=== PATIENT | male | born 1960 | race Caucasian/White ===

== ENCOUNTER 2018-06-28 19:00 | Emergency (ER) | payer OTHER | END 2018-06-28 20:00 | disposition home or self-care (01) | LOC: ER 19:00 | DX: K11.21 Acute sialoadenitis (principal); F17.200 Nicotine dependence, unspecified, uncomplicated ==

== ENCOUNTER → 2018-06-30 | Outpatient (CLI) | payer OTHER | LOC: YCFC.O 15:44 | PROVIDERS: ATTEND Family Medicine | DX: K11.9 Disease of salivary gland, unspecified (principal) ==

== ENCOUNTER 2018-11-09 16:54 | Inpatient (IN) | payer OTHER ==
[2018-11-09] MEDS ORDERED: IPRATROPIUM/ALBUTEROL 3 ML VIAL NEB ONE (17:19)
[2018-11-09] MEDS ORDERED: methylPREDNISolone SODIUM SUC 125 MG/2 ML VIAL IV ONE (17:19)
--- NOTE | 2018-11-09 17:22 | ED.PDOC ---
History of Present Illness - General Chief Complaint: Respiratory Problem Time Seen by Provider: 11/09/18 17:16 Source: patient Exam Limitations: no limitations - History of Present Illness Comments: PT C/O COUGH AND SOB. HAS BEEN SICK FOR PAST WEEK WITH MULTIPLE SICK FAMILY MEMBERS. HAS GOTTEN PROGRESSIVELY WORSE OVER PAST 3 DAYS. NOW WITH VERY INTENSE SPASMOTIC COUGH AND SOB. NON PRODUCTIVE. Cough Quality/Degree: moderate Improving Factors: nothing Worsening Factors: nothing Allergies/Adverse Reactions: Allergies Bupropion [From Wellbutrin] Allergy (Verified 11/09/18 17:01) Review of Systems - Review of Systems Constitutional: Denies: chills, fever EENTM: States: no symptoms reported Respiratory: States: cough, short of breath - GONSALEZ, NO PND ORTHOPNEA Cardiology: Denies: chest pain, palpitations, syncope Gastrointestinal/Abdominal: Denies: abdominal pain, nausea, vomiting Genitourinary: States: no symptoms reported Musculoskeletal: States: no symptoms reported Skin: States: no symptoms reported Neurological: States: no symptoms reported Endocrine: States: no symptoms reported Hematologic/Lymphatic: States: no symptoms reported Past Medical History (General) - Patient Medical History Hx Stroke: No Hx Asthma: No Hx of COPD: No Hx Cardiac Disorders: No Hx Diabetes: No Surgical History: other Family Medical History - Family History Mother Family History: No Known Physical Exam - Physical Exam General Appearance: Alert, Other - MILD RESP DISTRESS. Eye Exam: bilateral normal ENT Exam: normal ENT inspection, hearing grossly normal Neck: non-tender, full range of motion, supple Respiratory: other - BS SLIGHTLY DIMINISHED PAUL MORE IN L BASE, NO RALES/RHONCHI/WHEEZES. Cardiovascular/Chest: no murmur, tachycardia Gastrointestinal/Abdominal: non tender, soft, no organomegaly Extremity: normal range of motion, non-tender, normal inspection Neurologic: alert, normal mood/affect Skin Exam: normal color, warm/dry Lymphatic: no adenopathy Progress - Progress Progress: 11/09/18 17:51 PAUL LL PNEUMONIA, R>L. 11/09/18 18:41 LOOKS BETTER, LACTIC ACID NL, D/W MICHAEL MARSH WILL ADMIT. - EKG/XRAY/CT EKG: Sinus, Tachy - RATE 121, NL AXIS, NL INTERVALS, , nonspecific ST T wave Chg - NAIP, NO OLD FOR COMPARISON Departure - Departure Clinical Impression: Pneumonia Qualifiers: Pneumonia type: due to unspecified organism Laterality: bilateral Lung location: lower lobe of lung Qualified Code(s): J18.1 - Lobar pneumonia, unspecified organism COPD (chronic obstructive pulmonary disease) Qualifiers: COPD type: unspecified COPD Qualified Code(s): J44.9 - Chronic obstructive pulmonary disease, unspecified Time of Disposition: 18:43 Disposition: Admit Patient Condition: Fair Departure Forms: ED Discharge - Pt. Copy, Patient Portal Self Enrollment Referrals: Lauro Sanches MD [Primary Care Provider] - 1-2 Weeks Decision To Admit - Decistion To Admit Decision to Admit Reason: Admit from ER Decision to Admit Date: 11/09/18 Decision to Admit Time: 18:05
--- NOTE | 2018-11-09 17:40 | RAD ---
EXAM DESCRIPTION: Chest,1 View CLINICAL HISTORY: COUGH, SOB COMPARISON: 11 Apr 2010 TECHNIQUE: AP portable chest FINDINGS: Chronic basilar interstitial lung disease is observed. There has been an interval worsening in the right lung base. There may be a superimposed acute infiltrate present. The heart is within range of normal. The chest is mildly hyperexpanded. No pleural fluid is seen. IMPRESSION: A background of chronic basilar interstitial lung disease is observed with new infiltrate at the right lung base suggesting a superimposed pneumonia. Electronically signed by: Natanael Meyers MD 11/09/2018 5:39 PM [facility]
[2018-11-09] MEDS ORDERED: cefTRIAXone SODIUM 1 GM in SODIUM CHL 0.9% 50ML MIN-BAG+ 50 ML IVPB ONE (17:44)
[2018-11-09] MEDS ORDERED: AZITHROMYCIN IV 500 MG in SODIUM CHLORIDE 0.9% 250ML 250 ML IVPB ONE (17:44)
[2018-11-09] MEDS ORDERED: cefTRIAXone SODIUM 1 GM VIAL ONE (17:52)
[2018-11-09] MEDS ORDERED: SODIUM CHL 0.9% 50ML MIN-BAG+ 50 ML IVPB ONE (17:53)
[2018-11-09] MEDS ORDERED: AZITHROMYCIN IV 500 MG VIAL IVPB ONE (18:21)
[2018-11-09] MEDS ORDERED: SODIUM CHLORIDE 0.9% 250ML 250 ML ONE (18:21)
[2018-11-09] MEDS ORDERED: SODIUM CHLORIDE 0.9% 1000ML 1,000 ML IVS ONE (18:41)
--- NOTE | 2018-11-09 19:23 | HP ---
SUPERVISING PHYSICIAN: Zachary Leslie M.D. CHIEF COMPLAINT: Shortness of breath. HISTORY OF PRESENT ILLNESS: This is a 58 year-old male who developed some shortness of breath starting on Friday. Over the weekend it has progressively gotten worse. He has begun to have a productive cough. At first the cough production generated clear sputum, however it has turned yellow. He states he does not really know if he has run a fever or not, but he has had hot and cold episodes so he came to the Emergency Room with the complaints. Initially his O2 saturations were in the 70s. He was given a nebulizer as well as Solu-Medrol and placed on supplemental oxygen. He did have improvement in his O2 saturations. In fact, he was placed on a Venti mask. Chest x-ray was consistent with a right lower lobe pneumonia via interpretation but it does look like he has probably got a retrocardiac infiltrate on the left side as well. White count was 24,000 with 19% bands. Chemistry is pretty much unremarkable. Lactate was normal at 1.2. PAST MEDICAL HISTORY: The patient denies any past medical history. PAST SURGICAL HISTORY: 1. Distant history of hernia repair as a child. CURRENT MEDICATIONS: No active medications at this time. He does have nicotine dependency. ALLERGIES: WELLBUTRIN. FAMILY HISTORY: Father of a myocardial infarction. Mother who is healthy. Brother who of lung cancer. SOCIAL HISTORY: The patient smokes 1 pack per day and has done so for about the last 43 years or so. Social alcohol consumption. No illegal drugs. 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 REVIEW OF SYSTEMS: CONSTITUTIONAL: Possible fever. Positive for chills. No malaise. No recent weight loss or weight gain. HEENT: No headaches, vision changes, ear pain, nasal congestion or throat pain. RESPIRATORY: Positive for cough. No hemoptysis. No pleuritic chest pain. Positive for dyspnea. Positive for productive cough. CARDIOVASCULAR: No chest pain, palpitations or peripheral edema. GASTROINTESTINAL: No nausea, vomiting, diarrhea, constipation or abdominal pain. GENITOURINARY: No dysuria, frequency or flank pain. HEMATOLOGIC: No easy bruising or transfusion reaction. MUSCULOSKELETAL: No joint pain, joint swelling or muscle cramps. NEUROLOGIC: No syncope, paresthesias or seizures. ENDOCRINE: No polydipsia, polyuria or polyphagia. No heat or cold intolerance. PHYSICAL EXAMINATION: VITAL SIGNS: Blood pressure 115/78, heart rate about 115, respiratory rate 24, temperature 98.5, oxygen saturation currently 94% on 50% Venturi mask. GENERAL: Mr. Cedeno is a 58 year-old male patient who is in mild respiratory distress currently. HEENT: Head is normocephalic and atraumatic. Eyes: Pupils are equal and reactive. Nose: No drainage. Throat: Moist mucosa. NECK: Supple. Midline trachea. No jugular venous distention. CHEST: Symmetrical with equal rise and fall of the chest with inspiration and expiration. Lung sounds are diffusely diminished with bibasilar rales. In the upper lobes you can hear some faint wheezes. CARDIOVASCULAR: Regular rate and rhythm. Sinus tachycardia per the personnel monitor. ABDOMEN: Soft, flat. Positive bowel sounds. No tenderness to palpation. GENITOURINARY: Exam is deferred. EXTREMITIES: Lower extremities with no significant edema. 2+ pulses. Capillary refill less than 2 seconds. NEUROLOGIC: The patient is alert and oriented. Moves all extremities. Extraocular movements are intact.l LABORATORY: Labs and films are as discussed in History of Present Illness. ASSESSMENT: 1. Bibasilar pneumonia. 2. Sepsis secondary to #1. 3. Chronic obstructive pulmonary disease exacerbation. 4. Hypoxemic respiratory failure secondary to #1 and #3. 5. Continuous nicotine dependency. PLAN: At this time I will place the patient on community acquired pneumonia antibiotics. The blood cultures and sputum cultures have already been sent. Additionally he has gotten a liter of IV fluids in the Emergency Room. Will place him on continuous IV fluids as well. Will schedule nebulizer therapy as well as IV corticosteroids. I will probably put him on a nicotine patch due to his continuous nicotine dependency. I will order DVT and GI ulcer prophylaxis as well as well. Will monitor cultures and adjust antibiotics accordingly. [facility][id number] [facility]
[2018-11-09] MEDS ORDERED: ALBUTEROL SULFATE 2.5 MG/3 ML VIAL NEB PRN (19:40)
[2018-11-09] MEDS: IPRATROPIUM/ALBUTEROL 3 ML VIAL INH SCH (20:47)
[2018-11-09] MEDS: LACTATED RINGERS 1,000 ML IVS PRN (21:22)
[2018-11-09] MEDS: levoFLOXacin 750MG IV 750 MG in PREMIX BAG 1 BAG IVPB SCH (21:26)
[2018-11-09] MEDS: IV SET AND CAP CHANGE INJ INJ SCH (21:27)
[2018-11-09] MEDS: ENOXAPARIN SODIUM 40 MG/0.4 ML SYG SUBCU SCH (21:27)
[2018-11-09] MEDS: methylPREDNISolone SODIUM SUC 40 MG/ML VIAL IV SCH (21:42)
[2018-11-10] MEDS: IPRATROPIUM/ALBUTEROL 3 ML VIAL INH SCH ×6 (00:20→20:23)
[2018-11-10] MEDS: methylPREDNISolone SODIUM SUC 40 MG/ML VIAL IV SCH ×3 (06:05→22:27)
[2018-11-10] MEDS: OMEPRAZOLE CAP 20 MG CAP PO SCH (06:06)
--- NOTE | 2018-11-10 07:07 | RAD ---
EXAM: Single view chest. INDICATION: Pneumonia. COMPARISON: Chest x-ray: 11/09/18. FINDINGS: The lungs are emphysematous with grossly stable bibasilar airspace opacities, right greater than left. The heart size is stable. There is no pneumothorax or pleural effusion. The bones are unchanged. IMPRESSION: No significant change compared to the prior exam. Emphysematous lungs with grossly stable bibasilar airspace opacities, right greater than left, concerning for pneumonia Electronically signed by: Bentley Bender MD 11/10/2018 7:06 AM [facility] Workstation: [id number]
[2018-11-10] MEDS: LACTATED RINGERS 1,000 ML IVS PRN ×2 (09:31→20:11)
--- NOTE | 2018-11-10 14:23 | PN ---
DATE: SUPERVISING PHYSICIAN: Zachary Leslie M.D. SUBJECTIVE: The patient states he feels much better than he did yesterday. Shortness of breath has improved, however he does desaturate when he coughs. OBJECTIVE: Blood pressure is 111/71, heart rate 94, respiratory rate 20, temperature 98.0, oxygen saturation 95%. GENERAL: Mr. Cedeno is a 58 year-old male patient in no active distress currently. NEUROLOGIC: The patient is alert and oriented. LUNGS: Severely diminished. CARDIOVASCULAR: Regular rate and rhythm. Normal S1 and S2. ABDOMEN: Soft. Positive bowel sounds. EXTREMITIES: Lower extremities with no edema, 2+ pulses. LABORATORY: White count 15.7 which is an improvement over 24.3, hemoglobin 14.3, hematocrit 42.8, platelet count 150. Chemistry shows sodium 139, potassium 4.2, chloride 107, CO2 is 25, BUN 16, creatinine 0.94, glucose 159, calcium 8.9. Chest x-ray shows no significant change from yesterday. ASSESSMENT: 1. Bibasilar pneumonia. 2. Sepsis secondary to #1. 3. Chronic obstructive pulmonary disease exacerbation. 4. Hypoxemia secondary to #1 and #3. 5. Continuous nicotine dependency. PLAN: The patient is stepwise improving, therefore will continue current therapy. I plan on reducing his steroids starting tomorrow. He can possibly go to p.o. due to his dramatic improvement. Recheck labs tomorrow as well. #[id number] [facility]
[2018-11-10] MEDS: levoFLOXacin 750MG IV 750 MG in PREMIX BAG 1 BAG IVPB SCH (20:04)
[2018-11-10] MEDS: ENOXAPARIN SODIUM 40 MG/0.4 ML SYG SUBCU SCH (20:04)
[2018-11-10] MEDS: SODIUM CHLORIDE 0.9% (FLUSH) 10 ML SYG IV PRN ×2 (20:14→22:27)
[2018-11-11] MEDS: IPRATROPIUM/ALBUTEROL 3 ML VIAL INH SCH ×6 (00:14→20:38)
[2018-11-11] MEDS: OMEPRAZOLE CAP 20 MG CAP PO SCH (06:05)
[2018-11-11] MEDS: SODIUM CHLORIDE 0.9% (FLUSH) 10 ML SYG IV PRN (06:05)
[2018-11-11] MEDS: methylPREDNISolone SODIUM SUC 40 MG/ML VIAL IV SCH ×3 (06:06→20:39)
--- NOTE | 2018-11-11 07:03 | RAD ---
Procedure: XR CHEST 1 VIEW Exam Date: 11/11/2018 Ordering Provider: Gerardo Calles Clinical Indication: pneumonia Comparison: 11/10/2018 Findings: Cardiomediastinal silhouette is stable. Emphysema. Bibasilar infiltrates, right greater than left, are not significantly changed from prior. No pleural effusion. No pneumothorax. No acute osseous abnormality. Impression: 1. Bibasilar infiltrates are not significantly changed from prior. Electronically signed by: Kurt Briggs MD 11/11/2018 7:01 AM [facility]
[2018-11-11] MEDS ORDERED: SODIUM CHLORIDE 0.9% (FLUSH) 10 ML SYG IV ONE (13:51)
[2018-11-11] MEDS ORDERED: ACETAMINOPHEN 325 MG TAB PO PRN (14:31)
[2018-11-11] MEDS: levoFLOXacin 750MG IV 750 MG in PREMIX BAG 1 BAG IVPB SCH (19:41)
[2018-11-11] MEDS: ENOXAPARIN SODIUM 40 MG/0.4 ML SYG SUBCU SCH (19:41)
[2018-11-11] MEDS: guaiFENesin ER TAB 600 MG TAB PO SCH (20:39)
[2018-11-11] MEDS: SODIUM CHLORIDE 0.9% (FLUSH) 10 ML SYG IV SCH (20:40)
--- NOTE | 2018-11-11 23:59 | PN ---
DATE: 11/11/18 SUPERVISING PHYSICIAN: Zachary Leslie M.D. SUBJECTIVE: The patient continues to show some improvement but desaturates off oxygen, not quite as bad as he did yesterday. He has been trying to ambulate but still requires oxygen to do so. I have again encouraged him to stop smoking. He has had no chest pains and he has been afebrile. OBJECTIVE: VITAL SIGNS: Temperature 7.8, pulse 81, blood pressure 134/85, respirations 20, satting 93% on nasal cannula at rest. I's and O's show a positive balance of 2458 with 3558 in, 1100 out. Weight is 59.1 kg. CHEST: Lung sounds are diminished but no obvious wheezing is noted. HEART: Regular rate and rhythm. ABDOMEN: Soft, non-tender. Positive bowel sounds. EXTREMITIES: Without any clubbing, cyanosis or edema. LABORATORY: White count did go up to 19,800 but he is on an increased dose of steroids. Hemoglobin 14, hematocrit 42.1, platelet count 159,000. Differential shows a left shift but no bands. Chemistries continue to show normal electrolytes with BUN 17, creatinine 0.79. MICROBIOLOGY: Final sputum culture shows normal respiratory judy. Blood cultures remain negative at 48 hours. RADIOLOGY: Chest x-ray of single view chest per radiology interpretation shows bibasilar infiltrates not significantly changed from previous exams. ASSESSMENT: 1. Bibasilar pneumonia showing slow improvement, still requiring oxygen, likely community acquired. 2. Acute chronic obstructive pulmonary disease secondary to #1 requiring aggressive corticosteroids and bronchial hygiene. 3. Sepsis secondary to bibasilar pneumonia, improving with treatment. 4. Hypoxemia, persistent but improving secondary to the pneumonia and chronic obstructive pulmonary disease. 5. Chronic nicotine addiction with continuation of smoking cessation. PLAN: I will change the patient's steroids today to every 12 hours with anticipation of hopefully being able to continue to taper down to p.o. dose. He continues to ambulate but requires oxygen. I will start him on some chest percussive therapy and EzPAP as well as some Guaifenesin in efforts to hopefully mobilize some of the mucous. Will anticipate hopefully being able to discharge tomorrow, but until then will continue to treat aggressively and monitor as needed. #[id number] [facility]
[2018-11-12] MEDS: IPRATROPIUM/ALBUTEROL 3 ML VIAL INH SCH ×6 (00:14→19:38)
[2018-11-12] MEDS: guaiFENesin ER TAB 600 MG TAB PO SCH ×2 (08:22→20:51)
[2018-11-12] MEDS: predniSONE 20 MG TAB PO SCH (08:22)
[2018-11-12] MEDS: SODIUM CHLORIDE 0.9% (FLUSH) 10 ML SYG IV SCH ×2 (08:23→20:52)
--- NOTE | 2018-11-12 14:38 | PN ---
DATE: 11/12/18 SUPERVISING PHYSICIAN: Zachary Leslie M.D. SUBJECTIVE: The patient has made improvements with more aggressive pulmonary hygiene in the chest because of percussive therapy but still requires fairly high-dose steroids but has actually been able to taper down to p.o. dosing. He is still dropping his 02 without any supplemental oxygen and I discussed the possible need for going home on oxygen. There are no new complaints. He has been afebrile. He is starting to produce more mucus and clear this with .chest percussive therapy. OBJECTIVE: VITAL SIGNS: Temperature 98.1, pulse 94, blood pressure 126/77, respirations 20, satting 91% on nasal cannula 5 liters and room air shows desaturation into the low 80s. I's and O's show a negative balance of 936 with 964 in, 1900 out. Weight is 60.1 kg. He has had one bowel movement today. GENERAL: The patient is resting comfortably and in no distress. He is alert. CHEST: Lungs are fairly clear, just diminished towards the bases but certainly increased aeration from previous assessment. HEART: Regular rate and rhythm. ABDOMEN: Soft, non-tender. Positive bowel sounds. EXTREMITIES: Without any clubbing, cyanosis or edema. LABORATORY: White count at 17,900, hemoglobin 14.4, hematocrit 43.6 with platelet count of 187,000, differential continues to show a left shift. Chemistries have shown to be stable. MICROBIOLOGY: Final sputum culture shows normal judy. Blood cultures remain negative at 48 hours. RADIOLOGY: Chest x-ray was showing fairly stable appearance and will repeat one in the morning.. ASSESSMENT: 1. Bibasilar pneumonia showing slow improvement, still requiring oxygen, likely community acquired. 2. Acute chronic obstructive pulmonary disease secondary to #1 requiring aggressive corticosteroids and bronchial hygiene. 3. Sepsis secondary to bibasilar pneumonia, improving with treatment. 4. Hypoxemia, persistent but improving secondary to the pneumonia and chronic obstructive pulmonary disease. 5. Chronic nicotine addiction with continuation of smoking cessation. PLAN: I have transitioned Mr. Cedeno to p.o. prednisolone today at 60 and will taper down to 40 mg in the morning. He has been ambulating which he is going to continue but still requires oxygen supplementally to keep his 02 saturations. I discussed with him the need that he may need to go home on oxygen which he says he already has at home as well as a bottle, therefore, hopefully will discharge tomorrow. Until he transitions to outpatient management, we will continue to monitor and treat as needed. [facility][id number] [facility]
[2018-11-12] MEDS ORDERED: predniSONE 20 MG TAB PO ONE (17:00)
[2018-11-12] MEDS: ENOXAPARIN SODIUM 40 MG/0.4 ML SYG SUBCU SCH (19:33)
[2018-11-12] MEDS: levoFLOXacin 750MG IV 750 MG in PREMIX BAG 1 BAG IVPB SCH (19:33)
[2018-11-12] MEDS: SODIUM CHLORIDE 0.9% (FLUSH) 10 ML SYG IV PRN (19:34)
[2018-11-12] MEDS: IV SET AND CAP CHANGE INJ INJ SCH (19:40)
[2018-11-13] MEDS: IPRATROPIUM/ALBUTEROL 3 ML VIAL INH SCH ×4 (00:05→13:15)
--- NOTE | 2018-11-13 07:16 | RAD ---
EXAM: Chest,2 Views CLINICAL HISTORY: pneumonia COMPARISON STUDY: November 11 and 2017 TECHNICAL: PA and lateral chest x-ray FINDINGS: There is improving aeration of the bibasilar infiltrative densities. The lungs are hyperexpanded. There is no edema or effusion. There is no pneumothorax. The heart is not enlarged. IMPRESSION: 1. Improving bilateral basilar infiltrates. 2. Background of emphysematous changes. Electronically signed by: Kavon Kwan MD 11/13/2018 7:14 AM [facility]
[2018-11-13] MEDS: guaiFENesin ER TAB 600 MG TAB PO SCH (08:04)
[2018-11-13] MEDS: predniSONE 20 MG TAB PO SCH (08:04)
[2018-11-13] MEDS: SODIUM CHLORIDE 0.9% (FLUSH) 10 ML SYG IV SCH (08:05)
[2018-11-13 13:56] VITALS: BP 155/91; TEMP 98; O2SAT 88
--- NOTE | 2018-11-23 09:15 | DS ---
SUPERVISING PHYSICIAN: Zachary Leslie MD ADMISSION DIAGNOSIS: 1. Bibasilar pneumonia. 2. Sepsis secondary to #1. 3. Chronic obstructive pulmonary disease exacerbation. 4. Hypoxemic respiratory failure secondary to #1 and #3. 5. Continuous nicotine dependency. DISCHARGE DIAGNOSIS: 1. Bibasilar pneumonia probably community acquired requiring ongoing oxygen therapy at home. 2. Acute on chronic obstructive pulmonary disease with exacerbation secondary to #1 requiring aggressive corticosteroids and bronchial hygiene an 02 dependent. 3. Sepsis secondary to bibasilar pneumonia, improving with therapy. 4. Hypoxemia, persistent but showing continued improvement secondary to the pneumonia and exacerbation of chronic obstructive pulmonary disease. requiring ongoing oxygen at discharge. 5. Chronic nicotine addiction with again continuation of smoking cessation encouraged. REASON FOR HOSPITALIZATION: This is a 58 year-old male who developed some shortness of breath starting on Friday. Over the weekend it has progressively gotten worse. He has begun to have a productive cough. At first the cough production generated clear sputum, however it has turned yellow. He states he does not really know if he has run a fever or not, but he has had hot and cold episodes so he came to the Emergency Room with the complaints. Initially his O2 saturations were in the 70s. He was given a nebulizer as well as Solu-Medrol and placed on supplemental oxygen. He did have improvement in his O2 saturations. In fact, he was placed on a Venti mask. Chest x-ray was consistent with a right lower lobe pneumonia via interpretation but it does look like he has probably got a retrocardiac infiltrate on the left side as well. White count was 24,000 with 19% bands. Chemistry is pretty much unremarkable. Lactate was normal at 1.2. LABORATORY STUDIES: is intact to light touch on admission his white count was showing to be at 24,300 with 19% bands. At discharge he was showing a near normalization of white count back to baseline at 12,700 with hemoglobin of 15.7, hematocrit 46.9, platelet count 200,000. Differential continued to show a left shift but no bands at discharge. Blood gas analysis on admission showed a pH of 7.43 with PC02 of 32, P02 of 55, bicarb of 21, saturation 90% on a 2-liter nasal cannula. Chemistries showed normal electrolytes, normal liver functions on admission. BNP was normal at 57. Lactic acid normal on admission at 1.2. Electrolytes were normal prior to discharge. Kidney function was showing to be within normal limits with a BUN of 17, creatinine 0.79. MICROBIOLOGY: Blood cultures remained negative for 5 days. Sputum culture, final report, showed moderate mixed normal judy, respiratory judy. RADIOLOGY: Chest x-ray on admission per radiology interpretation on single view chest showed background of chronic basilar interstitial lung disease observed with new infiltrate in the right lung bases suggesting superimposed pneumonia. He had multiple x-rays through admission and on date of discharge on 11/13, final chest x-ray 2-view showed improving bilateral basilar infiltrates with background of emphysematous changes. He had an EKG on admission which showed a sinus tachycardia at [address]-T wave abnormalities. HOSPITAL COURSE: Mr. Cedeno was admitted on 11/09/18 as noted above for exacerbation of chronic obstructive pulmonary disease and pneumonia. He was started on aggressive bronchial hygiene with Duoneb treatment and covered with azithromycin and Rocephin. He did finish a course of azithromycin prior to discharge. He was requiring aggressive management with corticosteroids and then due to his x-ray showing changes and slow progress in his clinical progression, he was transitioned to Levaquin 75 mg daily. He was on guaifenesin and slowly tapered off Solu-Medrol dosing the day of discharge when he was showing to be stable on oral prednisone and it was felt he had shown improvement well enough to continue with outpatient management. He did have a PFT assessment which showed he had significant restriction even with the bronchodilators. He was requiring oxygen for which he was made arrangements for prior to discharge when he was showing on his 02 saturation, desaturation into the 80s on room air even without any exertion. He was able to maintain his 02 saturations on a nasal cannula even with exertion prior to discharge and it was then felt he was clinical stable enough to transition to outpatient management. PLAN: Mr. Cedeno was discharged on 11/13/18 with instructions to followup with Dr. Hadley in one to two weeks, sooner if needed. He was to resume his home medications as instructions. He was arranged for 02 and to wear as directed. He was again told multiple times encouraged to stop smoking and education on this prior to discharge. He was told to return to the hospital should he have any concerning symptoms. He was also based of his PFT testing, recommended referral to pulmonary rehabilitation at some point in the future with some degree of followup as an outpatient. DISCHARGE DIET: Regular as tolerated. ACTIVITIES: Increase as tolerated. MEDICATIONS PRESCRIBED AT DISCHARGE; 1. Robitussin HC 10 mL every 4 hours as needed, one bottle, no refills. 2. Proventil nebulizer every 2 hours if needed, p.r.n. as scheduled, #60. 3. Guaifenesin 1200 mg twice a day for at least 7 days. 4. Levaquin 750 mg for an additional 2 days at discharge. 5. Prednisone tapering regimen 10 mg tablets over 10 days. 6. Anoro Ellipta 62.5, 2 mg/25 mcg inhaled, one daily, 3 aerators provided per samples from Dr. Hadley's office. DISPOSITION: The patient is discharged home on oxygen, continued therapy. CONDITION ON DISCHARGE: Stable and improving. #[id number] [facility]
== END 2018-11-13 13:57 | disposition home or self-care (01) | DRG 871 ==
LOC: ER 16:54 → OBSVTOIN 19:22 → MS 19:22
PROVIDERS: ADMIT Nurse Practitioner; ATTEND Nurse Practitioner Family
DX: A41.9 Sepsis, unspecified organism (principal); J18.9 Pneumonia, unspecified organism; J44.1 Chronic obstructive pulmonary disease with (acute) exacerbation; J96.91 Respiratory failure, unspecified with hypoxia; J44.0 Chronic obstructive pulmonary disease with (acute) lower respiratory infection; F17.210 Nicotine dependence, cigarettes, uncomplicated; Z88.8 Allergy status to other drugs, medicaments and biological substances

== ENCOUNTER 2020-02-24 20:40 | Emergency (ER) | payer SELFPAY ==
[2020-02-24] MEDS ORDERED: ALUM & MAG HYDROX-SIMETHICONE 30 ML UD ONE (20:46)
[2020-02-24] MEDS ORDERED: LIDOCAINE HCL 2% (MOUTH-THROAT) 15 ML UD ONE (20:46)
[2020-02-24] MEDS: SODIUM CHLORIDE 0.9% 1000ML 1,000 ML IVS ONE (20:48)
[2020-02-24] MEDS: ALUM & MAG HYDROX-SIMETHICONE 30 ML, LIDOCAINE VISCOUS 2% 15 ML PO ONE ×2 (20:49)
[2020-02-24] MEDS: MORPHINE SULFATE INJ 10 MG/ML VIAL IV ONE ×2 (20:49→21:29)
[2020-02-24] MEDS: ONDANSETRON INJ 4 MG/2 ML VIAL IV ONE (20:50)
[2020-02-24] MEDS ORDERED: HEPARIN PREMIX 500 ML ONE (20:54)
[2020-02-24] MEDS: HEPARIN SODIUM (PORCINE) 5,000 U/ML VIAL IV ONE (20:54)
[2020-02-24] MEDS: HEPARIN PREMIX 25,000 UNITS in PREMIX BAG 1 BAG IVS SCH (20:56)
--- NOTE | 2020-02-24 21:14 | RAD ---
EXAM DESCRIPTION: Chest,1 View CLINICAL HISTORY: 60 years Male CP COMPARISON: 11/13/2018 FINDINGS: Cardiac size and mediastinal contour within normal limits. Prominent interstitial markings in the lung bases bilaterally similar to previous examinations likely reflect areas of fibrosis. Linear atelectasis or scarring also present in the left midlung field. Emphysematous changes in the apices. IMPRESSION: Emphysematous change with areas of fibrosis in the lung bases similar to the previous studies No acute process noted Electronically signed by: Britta Brito MD 02/24/2020 9:12 PM CDT
[2020-02-24] MEDS: TENECTEPLASE 50 MG VIAL IV ONE (21:21)
[2020-02-24] MEDS: CLOPIDOGREL 75 MG TAB PO ONE (21:26)
[2020-02-24] MEDS: ALTEPLASE 50 MG IVS ONE (21:32)
[2020-02-24 21:53] VITALS: BP 114/75; TEMP 95.9; O2SAT 93
--- NOTE | 2020-02-24 22:25 | ED.PDOC ---
History of Present Illness - General Chief Complaint: Chest Pain/MT Stated Complaint: chest pain Time Seen by Provider: 02/24/20 20:42 Source: patient Additional Information: 60yo M presents with acute CP. 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 Onset while at rest. Pain is heavy centrally, radiates to both arms. No nausea, vomiting or diaphoresis. The patient denies prior hx of heart disease. He is a smoker with hx of COPD. No other reported issues. - History of Present Illness Timing/Duration: 1/2 hour Severity: severe Location: substernal Activities at Onset: rest Prior Chest Pain/Cardiac Workup: no prior cardiac workup Aspirin Treatment Today: 81 mg x 4, provided at home Allergies/Adverse Reactions: Allergies Bupropion [From Wellbutrin] Allergy (Verified 11/09/18 17:01) Home Medications: Ambulatory Orders Albuterol Sulfate Nebs [Proventil Nebs] 2.5 mg NEB Q2H PRN #60 vial 11/13/18 Levofloxacin [Levaquin] 750 mg PO DAILY #2 tablet 11/13/18 Umeclidinium-Vilanterol [Anoro Ellipta 62.5-25 Mcg/INH] 1 aer IN DAILY #1 aer 11/13/18 guaiFENesin ER TAB [Mucinex Tab] 1,200 mg PO BID tab 11/13/18 guaiFENesin W/CODEINE LIQ [Robitussin AC] 10 ml PO Q4HR PRN #1 bottle 11/13/18 predniSONE [Prednisone] See Taper PO DAILY #30 tab 11/13/18 Review of Systems - Review of Systems Constitutional: Denies: chills, fever EENTM: States: no symptoms reported Respiratory: States: short of breath. Denies: cough Cardiology: States: chest pain. Denies: palpitations, syncope Gastrointestinal/Abdominal: Denies: abdominal pain, nausea, vomiting Genitourinary: States: no symptoms reported Musculoskeletal: Denies: back pain, neck pain Skin: Denies: change in color, rash Neurological: Denies: headache, numbness, weakness Endocrine: States: no symptoms reported Hematologic/Lymphatic: States: no symptoms reported Past Medical History (General) - Patient Medical History Hx Seizures: No Hx Stroke: No Hx Asthma: No Hx of COPD: No - New Onset Hx Cardiac Disorders: No Hx Congestive Heart Failure: No Hx Pacemaker: No Hx Hypertension: No Hx Diabetes: No Hx MRSA: No - Vaccination History Hx Tetanus, Diphtheria Vaccination: No Hx Influenza Vaccination: Yes Hx Pneumococcal Vaccination: No - Social History Hx Tobacco Use: Yes Hx Alcohol Use: No Hx Substance Use: No Hx Physical Abuse: No Hx Emotional Abuse: No Family Medical History - Family History Mother Family History: No Known Living Status: Still Living Hx Family Asthma: No Hx Family Congestive Heart Failure: No Hx Family Hypertension: Yes Hx Family Stroke: No Hx Cardiac Disease: Yes Hx Family Diabetes: Yes Hx Family Cancer: Yes Father Living Status: Cause of : [place] Physical Exam - Physical Exam General Appearance: Alert - Moderate distress due to symptoms Eyes, Ears, Nose, Throat Exam: PERRL/EOMI, normal ENT inspection Neck: non-tender, full range of motion, supple, normal inspection Respiratory: lungs clear, normal breath sounds, no respiratory distress Cardiovascular/Chest: regular rate, rhythm, no edema Gastrointestinal/Abdominal: non tender, soft Extremity: normal range of motion, non-tender Neurologic: no motor/sensory deficits, alert, normal mood/affect, oriented x 3 Skin Exam: normal color, warm/dry Progress - Progress Progress: 02/24/20 22:44 DDX: STEMI, ACS, atypical chest pain, infection, GI problem Marlo Yeager MD. #[id number] Critical Care: Life threatening condition, 32 minutes. 02/24/20 22:44 Pt with STEMI. Air transport not possible reportedly due to weather. Due to distance and time concern, fibrinolytic treatment initiated. Pt subsequently pain free with marked improvement in EKG. Case discussed with ED physician on duty at [facility], accepts case. PT updated and good with plan. - Results/Orders Results/Orders: EKG 1: 20:44 Sinus, 62. Nl axis. ST elevation in inf leads with recip changes. EKG 2: 21:44 Sinus, 76. Nl axis. Non-spec ST and T wave abnormalities. 02/24/20 20:45 EKG STAT Laboratory Results - last 24 hr 02/24/20 02/24/20 20:45 20:45 WBC 8.7 RBC 5.43 Hgb 17.8 Hct 51.7 MCV 95.2 H MCH 32.8 H MCHC 34.5 RDW 13.9 Plt Count 214 MPV 8.7 Absolute Neuts (auto) 4.70 Absolute Lymphs (auto) 2.80 Absolute Monos (auto) 0.90 H Absolute Eos (auto) 0.20 Absolute Basos (auto) 0.10 Neutrophils % 53.4 Lymphocytes % 32.2 Monocytes % 10.7 H Eosinophils % 2.4 Basophils % 1.3 Sodium 138 Potassium 3.9 Chloride 105 Carbon Dioxide 24 Anion Gap 12.9 BUN 25 H Creatinine 1.10 BUN/Creatinine Ratio 22.7 H Random Glucose 108 H Serum Osmolality 280.6 Calcium 9.3 Total Bilirubin 0.3 AST 18 ALT 16 Alkaline Phosphatase 70 Creatine Kinase 55 CK-MB (CK-2) 2.1 CK-MB (CK-2) % Not Reportable Troponin I < 0.02 Serum Total Protein 7.3 Albumin 3.7 Globulin 3.6 H Albumin/Globulin Ratio 1.0 L Last Vital Signs Temp 95.9 F L 02/24/20 21:45 Pulse 84 02/24/20 21:45 Resp 16 02/24/20 21:45 BP 114/75 02/24/20 21:45 Pulse Ox 93 L 02/24/20 21:45 - EKG/XRAY/CT XRAY: chest - COPD changes. No acute. See formal read. Departure - Departure Clinical Impression: STEMI (ST elevation myocardial infarction) Qualifiers: Involved coronary artery: unspecified coronary artery Qualified Code(s): I21.3 - ST elevation (STEMI) myocardial infarction of unspecified site COPD (chronic obstructive pulmonary disease) Qualifiers: COPD type: unspecified COPD Qualified Code(s): J44.9 - Chronic obstructive pulmonary disease, unspecified Disposition: Transfer to Hospital Condition: Fair Departure Forms: ED Discharge - Pt. Copy, Patient Portal Self Enrollment Instructions: DI for Chest Pain Referrals: Lauro Sanches MD [Primary Care Provider] - 1-2 Weeks Home Medications: Ambulatory Orders Albuterol Sulfate Nebs [Proventil Nebs] 2.5 mg NEB Q2H PRN #60 vial 11/13/18 Levofloxacin [Levaquin] 750 mg PO DAILY #2 tablet 11/13/18 Umeclidinium-Vilanterol [Anoro Ellipta 62.5-25 Mcg/INH] 1 aer IN DAILY #1 aer 11/13/18 guaiFENesin ER TAB [Mucinex Tab] 1,200 mg PO BID tab 11/13/18 guaiFENesin W/CODEINE LIQ [Robitussin AC] 10 ml PO Q4HR PRN #1 bottle 11/13/18 predniSONE [Prednisone] See Taper PO DAILY #30 tab 11/13/18
== END 2020-02-24 21:50 | disposition short-term general hospital (02) ==
LOC: ER 20:40
DX: I21.3 ST elevation (STEMI) myocardial infarction of unspecified site (principal); J44.9 Chronic obstructive pulmonary disease, unspecified; F17.200 Nicotine dependence, unspecified, uncomplicated
CPT/HCPCS: 36415; 71045; 80053; 82550; 82553; 84484; 85025; 93005; J1644; J2270; J2405; J3101; J7030